=== PATIENT | female | born 1935 | race Caucasian/White ===

== ENCOUNTER 2018-06-23 10:48 | Inpatient (IN) | payer MEDICARE, OTHER ==
[~2018-06-23] VITALS: Ht 152.4 cm; Wt 78.0 kg
[2018-06-23 10:53] VITALS: BP 156/90
[2018-06-23] MEDS ORDERED: SYNTHROID75 MCG PO (11:04)
[2018-06-23] MEDS ORDERED: LIPITOR80 MG PO (11:05)
[2018-06-23] MEDS ORDERED: ASPIR 8181 MG PO (11:05)
[2018-06-23] MEDS ORDERED: CRANBERRY250 MG PO (11:05)
[2018-06-23] MEDS ORDERED: TOPROL XL25 MG PO (11:05)
[2018-06-23 11:47] LABS: HEMATOCRIT 39.1 % (37.0-47.0); MCH 32.9 pg (26.0-34.0); MCHC 33.3 g/dL (28.0-37.0); MCV 98.7 fL (80.0-100.0); MPV 7.1 fl. (7.2-11.1); NUCLEATED RBCS 0 /100WBC; PLATELET COUNT* 253 thou/uL (150-400); RBC 3.97 mil/uL (4.20-5.00); RDW-CV 12.6 % (10.5-14.5); WBC 6.9 thou/uL (4.0-11.0)
[2018-06-23 11:52] LABS: ANION GAP 8 mmol/L (7-16); BUN 17 mg/dL (7-18); CALCIUM 8.4 mg/dL (8.5-10.1); CHLORIDE 103 mmol/L (98-107); CO2 27 mmol/L (21-32); GLUCOSE 122 mg/dL (70-99); POTASSIUM 3.9 mmol/L (3.5-5.1); SODIUM 138 mmol/L (136-145)
[2018-06-23 12:00] LABS: ALBUMIN 3.2 g/dL (3.4-5.0); ALKALINE PHOSPHATASE 93 U/L (46-116); SGOT 50 U/L (15-37); SGPT 46 U/L (30-65); TOTAL BILIRUBIN 0.5 mg/dL (<0.1-1.0); TOTAL PROTEIN 7.8 g/dL (6.4-8.2); TROPONIN-I LEVEL <0.06 ng/mL (<0.06)
[2018-06-23 12:12] LABS: ABSOLUTE EOSINOPHILS 0.1 thou/uL (0.0-0.7); ABSOLUTE LYMPHOCYTES 0.6 thou/uL (0.8-5.3); ABSOLUTE MONOCYTES 0.3 thou/uL (0.0-1.2); GIANT PLATELETS OCCASIONAL; PLATELET ESTIMATE ADEQUATE
[2018-06-23 13:40] LABS: URINE BILIRUBIN NEGATIVE (Negative); URINE BLOOD 1+ (Negative); URINE CLARITY CLEAR; URINE COLOR YELLOW; URINE GLUCOSE-RANDOM NEGATIVE (Negative); URINE KETONES NEGATIVE (Negative); URINE LEUKOCYTES-REFLEX NEGATIVE (Negative); URINE NITRITE-REFLEX NEGATIVE (Negative); URINE PROTEIN NEGATIVE (Negative); URINE SPECIFIC GRAVITY 1.015 (1.005-1.030); URINE UROBILINOGEN 0.2 E.U./dl (0.2-1.0)
[2018-06-23 13:48] LABS: BACTERIA-REFLEX 1-9 Few /HPF (None Seen); CASTS None Seen /LPF (None Seen); CRYSTALS None Seen /LPF (None Seen); MUCUS None Seen strn/LPF (None Seen); SQUAMOUS 4-10 Moderate /LPF (0-3); URINE RBC 3-10 Few /HPF (0-2); URINE WBC-REFLEX 0-5 Rare /HPF (0-5)
[2018-06-23 14:41] VITALS: BP 147/63
[2018-06-23 15:30] VITALS: BP 153/68
--- NOTE | 2018-06-23 15:43 | EKG ---
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 06/23/18 1543 1134 [id number] Kostas Oglesby MD, FAC /EPI
--- NOTE | 2018-06-23 15:58 | 2DMMODE ---
[place] [address] 2 D/M-MODE ECHOCARDIOGRAM Name: JUSTIN SALES Room: [address] IN [facility]#: [id number] Admission: 06/23/18 Attend Phys: Alec Patel, Discharge: Date of : 35 Date of Service: 06/23/18 1557 Report #: [id number] THIS REPORT FOR: //name// APPROVED REPORT Study performed: 06/23/2018 14:21:56 EXAM: Comprehensive 2D, Doppler, and color-flow Echocardiogram Patient Location: In-Patient Room #: ER Status: routine BSA: 1.83 HR: 88 bpm BP: 114/58 mmHg Rhythm: NSR Other Information Study Quality: Good Indications CVA/TIA Echo Enhancing Agent Indication: Rule out Shunt Agent(s) / Amount(s) Used: Agitated Saline 10 cc 2D Dimensions IVSd: 13.27 (7-11mm) LVOT Diam: 18.65 (18-24mm) LVDd: 32.41 mm PWd: 8.14 (7-11mm) Ascending Ao: 26.52 (22-36mm) LVDs: 19.50 (25-40mm) Aortic Root: 27.67 mm Volumes Left Atrial Volume (Systole) LA ESV Index: 19.60 mL/m2 Aortic Valve AoV Peak Raciel.: 1.34 m/s AO Peak Gr.: 7.23 mmHg LVOT Max P.94 mmHg AO Mean Gr.: 4.30 mmHg LVOT Mean P.09 mmHg LVOT Max V: 0.99 m/s AO V2 VTI: 27.16 cm LVOT Mean V: 0.67 m/s CARMEN (VTI): 2.22 cm2 LVOT V1 VTI: 22.02 [place] [address] 2 D/M-MODE ECHOCARDIOGRAM Name: JUSTIN SALES I Room: [address] IN [facility]#: [id number] Admission: 06/23/18 Attend Phys: Alec Patel, Discharge: Date of : 35 Date of Service: 06/23/18 1557 Report #: [id number] Mitral Valve E/A Ratio: 0.74 MV Decel. Time: 91.17 ms MV E Max Raciel.: 0.82 m/s MV PHT: 26.44 ms MVA (PHT): 8.32 cm2 TDI E/Lateral E': 9.11 E/Medial E': 7.45 Medial E' Raciel.: 0.11 m/s Lateral E' Raciel.: 0.09 m/s Pulmonary Valve PV Peak Raciel.: 0.94 m/s PV Peak Gr.: 3.50 mmHg Left Ventricle The left ventricle is normal size. There is normal LV segmental wall motion. There is normal left ventricular wall thickness. Left ventricular systolic function is normal. The left ventricular ejection fraction is within the normal range. LVEF is 65%. Grade I - abnormal relaxation pattern. Right Ventricle The right ventricle is normal size. The right ventricular systolic function is normal. Atria Left atrium is mildly dilated. Interatrial septum is intact without evidence of ASD or PFO. The right atrium size is normal. Aortic Valve The aortic valve is normal in structure. No aortic regurgitation is present. There is no aortic valvular stenosis. Mitral Valve The mitral valve is normal in structure. There is no mitral valve regurgitation noted. No evidence of mitral valve stenosis. Tricuspid Valve The tricuspid valve is normal in structure. There is no tricuspid valve regurgitation noted. Pulmonic Valve The pulmonary valve is normal in structure. There is no pulmonic [place]vular [place] [address] 2 D/M-MODE ECHOCARDIOGRAM Name: JUSTIN SALES I Room: [address] IN ..#: [id number] Admission: 06/23/18 Attend Phys: Alec Patel, Discharge: Date of : 35 Date of Service: 06/23/18 1557 Report #: [id number] Great Vessels The aortic root is normal in size. IVC is normal in size and collapses >50% with inspiration. Pericardium There is no pericardial effusion. <Conclusion> The left ventricle is normal size. There is normal left ventricular wall thickness. Left ventricular systolic function is normal. The left ventricular ejection fraction is within the normal range. LVEF is 65%. Grade I - abnormal relaxation pattern. The right ventricle is normal size. Left atrium is mildly dilated. The right atrium size is normal. The aortic valve is normal in structure. The mitral valve is normal in structure. The tricuspid valve is normal in structure. IVC is normal in size and collapses >50% with inspiration. There is no pericardial effusion. There is normal LV segmental wall motion. Interatrial septum is intact without evidence of ASD or PFO. <ELECTRONICALLY SIGNED> By: Kostas Oglesby MD, FACC 06/23/18 1557 1557 1557 Kostas Oglesby MD, FACC /INF
[2018-06-23 20:00] VITALS: BP 152/57
[2018-06-24] VITALS (7 sets, daily range): BP systolic 120–153; BP diastolic 53–81
[2018-06-24 09:06] LABS: HEMATOCRIT 34.5 % (37.0-47.0); HEMOGLOBIN 11.7 gm/dL (12.0-15.0); MCH 33.5 pg (26.0-34.0); MCV 98.6 fL (80.0-100.0); MPV 7.2 fl. (7.2-11.1); RBC 3.5 mil/uL (4.20-5.00); RDW-CV 12.7 % (10.5-14.5); WBC 4.4 thou/uL (4.0-11.0)
[2018-06-24 09:19] LABS: ALBUMIN 2.6 g/dL (3.4-5.0); ALKALINE PHOSPHATASE 77 U/L (46-116); ANION GAP 8 mmol/L (7-16); BUN 18 mg/dL (7-18); CALCIUM 8.1 mg/dL (8.5-10.1); CHLORIDE 105 mmol/L (98-107); CHOLESTEROL 96 mg/dL (<200); CO2 26 mmol/L (21-32); CREATININE 0.9 mg/dL (0.6-1.3); GLUCOSE 94 mg/dL (70-99); HDL CHOLESTEROL 38 mg/dL (>40); LDL CHOLESTEROL 47 mg/dL (<100); POTASSIUM 3.5 mmol/L (3.5-5.1); SGOT 39 U/L (15-37); SGPT 39 U/L (30-65); SODIUM 139 mmol/L (136-145); TC:HDL 2.5 Ratio (Not establshd); TOTAL BILIRUBIN 0.4 mg/dL (<0.1-1.0); TOTAL PROTEIN 6.6 g/dL (6.4-8.2); TRIGLYCERIDE 58 mg/dL (<150); VLDL 12 mg/dL (<40)
[2018-06-24 09:20] LABS: SERUM ASSESSMENT Clear
[2018-06-24 23:12] LABS: GLYCOHEMOGLOBIN (HGB A1C) 5.8 % (4.8-5.6)
[2018-06-25] VITALS: BP 150/73
[2018-06-25 04:00] VITALS: BP 132/70
[2018-06-25 08:28] VITALS: BP 156/72
[2018-06-25 12:00] VITALS: BP 137/69
[2018-06-25 16:00] VITALS: BP 127/62
[2018-06-26 01:07] VITALS: BP 150/63
[2018-06-26 05:07] VITALS: BP 130/70
[2018-06-26 07:50] VITALS: BP 155/75
[2018-06-26 11:37] VITALS: BP 148/65
[2018-06-26] MEDS ORDERED: B12INJ PO (12:40)
[2018-06-26 12:42] VITALS: BP 141/65
--- NOTE | 2018-06-27 09:54 | CON ---
[address] [address] CONSULTATION Name: JUSTIN SALES I Room: [address] IN M.R.#: [id number] Admission: 06/23/18 Attend Phys: Alec Patel MD Discharge: 06/26/18 Date of : 35 Report #: [id number] THIS REPORT FOR: //name// CC: Lucho LOCO DATE OF SERVICE: 06/23/2018 HISTORY OF PRESENT ILLNESS: This is an 83-year-old female patient who was evaluated by me because apparently she became unresponsive. The history I get is that she lives with her sister. Sister is not here. They were going to take her to doctor. She had passing out spell. She was weak. Her memory is still poor. However, the memory is poor even in her baseline. She still has significant memory problem even in the baseline. They do not know what brought this episode on. REVIEW OF SYSTEMS: Indicate that this patient does have a history of breast cancer and ovarian cancer. She had an episode of what looks like syncope or presyncope. She had urinary incontinence during this episode. It is not clear if there was any tonic-clonic activity was noticed. She had MRIs in the past. She had a stroke in the past. It is not clear what testing she was done, but she said she had multiple MRIs in the past. REVIEW OF SYSTEMS: A 14-point review of system was carried out only from the family. She has a history of hypothyroidism, hysterectomy, ovarian cancer, breast cancer, arthritis, hypertension, CVA in the past. I looked at the prior records. I cannot find any prior records of this patient. Family does not believe that her vision and hearing is any different. She is not complaining of any cardiac, respiratory, GI, , musculoskeletal, constitutional, dermatological, hematological, psychiatric, throat, allergic symptom which is new and associated with present symptomatology. PAST MEDICAL HISTORY: Positive for stroke. FAMILY HISTORY: Negative for early age strokes. SOCIAL HISTORY: The patient does not drink alcohol as I understand. PHYSICAL EXAMINATION: The patient is alert, responsive. She can follow simple commands. She does not know what month it is. She does not know what hospital she is in. Her memory is very poor. Speech looks intact. Cranial nerve examination 2-12 looks mostly unremarkable. To me her strength, sensation, reflexes and tone look symmetrical. She does not have any cerebellar sign. I could not look at the patient's fundus. There is no meningeal sign. There is no thyroid mass. She is moderately built individual [place] [address] CONSULTATION Name: JUSTIN SALES I Room: [address] IN ..#: [id number] Admission: 06/23/18 Attend Phys: Alec Patel MD Discharge: 06/26/18 Date of : 35 Report #: [id number] dysmorphic features of eyes, ears and face. Her pulses are palpable. She has no edema, cyanosis or jaundice. Cardiac examination is unremarkable. No respiratory difficulty or rhonchi was noticed. Her blood pressure was 147/63, respirations 16, pulse is 83, temperature is 98.6. WBC count is 6.9. IMPRESSION: Difficult to tell clinically what happened. Neurologically the possibility of transient ischemic attack or stroke or seizure needs to be excluded. We will try to do that workup. Symptoms can come from systemic problems including vasovagal tract or any cardiac etiologies. Evaluation and management I will defer to you. RECOMMENDATIONS: 1. MRI of the brain and MRA of the head and neck. 2. EEG. 3. press catcher. 4. We will see if there is any etiology, which we can localize on the patient's testing neurologically. Thank you very much for this referral and we will follow the patient along with you. <ELECTRONICALLY SIGNED> By: Sai Little MD 06/27/18 0954 1551 [id number] Little MD /nt
--- NOTE | 2018-06-27 09:54 | EEG ---
[address] [address] EEG STUDY REPORT Name: HENRRYJUSTIN Krystina Room: [address] IN ..#: [id number] Admission: 06/23/18 Attend Phys: Alec Patel MD Discharge: 06/26/18 Date of : 35 Report #: [id number] THIS REPORT FOR: //name// CC: Lucho LOCO DATE OF SERVICE: 06/24/2018 This patient is being evaluated for altered mental status. She had an episode of syncope like symptoms. EEG is done to evaluate the possibility of seizure, especially because of her prior stroke. The patient's background activity appeared to be up to about 8-9 Hz and 30 microvolts. This is a symmetrical activity. The patient went to sleep that is associated with bilateral slowing and vertex sharp waves. Photic stimulation is unremarkable. No clearly defined epileptiform activity was noticed during this record. IMPRESSION: This patient's EEG is intermixed with theta range slowing on both sides. That is a nonspecific abnormality, which can occur with dementia, encephalopathy, effect of psychotropic medication. No clearly defined epileptiform activity was noticed during this record. It might be mentioned that EEG can be normal in a patient with a seizure disorder. Thank you very much for this referral. <ELECTRONICALLY SIGNED> By: Sai Little MD 06/27/18 0954 1557 1623Pmi Little MD /reyes
== END 2018-06-26 13:40 | disposition home or self-care (01) | DRG 640 ==
LOC: M.ERS 10:48 → M.TBA-ER 13:50 → M.3W 13:50 → M.2W 06-24 16:07
PROVIDERS: Personal Emergency Response Attendant; ADMIT Internal Medicine
DX: E53.8 Deficiency of other specified B group vitamins (principal); G93.41 Metabolic encephalopathy; E44.1 Mild protein-calorie malnutrition; J98.11 Atelectasis; G45.9 Transient cerebral ischemic attack, unspecified; I10 Essential (primary) hypertension; E78.5 Hyperlipidemia, unspecified; M19.90 Unspecified osteoarthritis, unspecified site; E03.9 Hypothyroidism, unspecified; Z66 Do not resuscitate; J32.9 Chronic sinusitis, unspecified; F03.90 Unspecified dementia, unspecified severity, without behavioral disturbance, psychotic disturbance, mood disturbance, and anxiety; Z86.73 Personal history of transient ischemic attack (TIA), and cerebral infarction without residual deficits; Z85.43 Personal history of malignant neoplasm of ovary; Z90.710 Acquired absence of both cervix and uterus; Z85.3 Personal history of malignant neoplasm of breast; Z68.33 Body mass index [BMI] 33.0-33.9, adult; Z79.82 Long term (current) use of aspirin; Z79.899 Other long term (current) drug therapy